=== PATIENT | female | born 1990 | race African-American/Black ===

== ENCOUNTER 2019-04-16 09:33 | Emergency (ER) | payer MEDICAID ==
[2019-04-16 10:10] VITALS: BP 124/66
--- NOTE | 2019-04-16 10:19 | ER Document Report ---
ED Medical Screen (RME) - General Chief Complaint: Abdominal Pain Stated Complaint: ABDOMINAL PAIN Time Seen by Provider: 04/16/19 10:16 - HPI Notes: 04/16/19 10:18 Patient is a 29-year-old female G4, P2 approximately 11 weeks who presents complaining of right lower pelvic cramping intermittently for a few weeks with occasional low back pain as well. She has not had any vaginal bleeding, odor, or discharge. I have treated and performed a rapid initial assessment of this patient. A comprehensive ED assessment and evaluation of the patient, analysis of test results and completion of medical decision making process will be conducted by additional ED providers. PHYSICAL EXAMINATION: GENERAL: Well-appearing, well-nourished and in no acute distress. A&Ox4. Answers questions appropriately. Abdomen: Limited exam in triage, but abdomen is otherwise grossly soft without significant tenderness noted. - Related Data Allergies/Adverse Reactions: acetaminophen [From Tylenol-Codeine #3] Allergy (Verified 04/16/19 10:17) codeine [From Tylenol-Codeine #3] Allergy (Verified 04/16/19 10:17) Physical Exam - Vital signs Vitals: Temp Pulse Resp BP Pulse Ox 98.3 F 73 16 124/66 99 04/16/19 10:09 04/16/19 10:09 04/16/19 10:09 04/16/19 10:09 04/16/19 10:09 Course - Vital Signs Vital signs: Temp Pulse Resp BP Pulse Ox 98.3 F 73 16 124/66 99 04/16/19 10:09 04/16/19 10:09 04/16/19 10:09 04/16/19 10:09 04/16/19 10:09
[2019-04-16 11:04] LABS: ABSOLUTE EOSINOPHILS # (AUTO) 0.1 10^3/uL (0.0-0.6); ABSOLUTE LYMPHOCYTES (AUTO) 1.9 10^3/uL (0.5-4.7); ABSOLUTE MONOCYTES (AUTO) 0.4 10^3/uL (0.1-1.4); ABSOLUTE NEUT (AUTO) 6.1 10^3/uL (1.7-8.2); BASOPHILS % (AUTO) 0.3 % (0-2); EOSINOPHILS % (AUTO) 0.9 % (0-6); HEMATOCRIT 37.3 % (36.0-47.0); HEMOGLOBIN 12.6 g/dL (12.0-15.5); MEAN CORPUSCULAR HEMOGLOBIN 29.1 pg (27.0-33.4); MEAN CORPUSCULAR HGB CONC 33.7 g/dL (32.0-36.0); MEAN CORPUSCULAR VOLUME 86 fl (80-97); MONOCYTES % (AUTO) 4.9 % (3-13); PLATELET COUNT 261 10^3/uL (150-450); RED BLOOD COUNT 4.31 10^6/uL (3.72-5.28); RED CELL DISTRIBUTION WIDTH 13.7 % (11.5-14.0); SEGMENTED NEUTROPHILS % (AUTO) 71.9 % (42-78); TOTAL CELLS COUNTED % (AUTO) 100 %; WHITE BLOOD COUNT 8.5 10^3/uL (4.0-10.5)
[2019-04-16 11:07] LABS: APPEARANCE,URINE CLEAR; BILIRUBIN,URINE NEGATIVE (NEGATIVE); COLOR,URINE YELLOW; GLUCOSE, URINE NEGATIVE (NEGATIVE); KETONES,URINE NEGATIVE (NEGATIVE); PROTEIN,URINE NEGATIVE (NEGATIVE); URINE SPECIFIC GRAVITY 1.023; UROBILINOGEN,URINE NEGATIVE mg/dL (<2.0)
--- NOTE | 2019-04-16 11:17 | RADIOLOGY REPORT (SQ) ---
EXAM DESCRIPTION: U/S 1TRIMESTER/1GEST W/DOPPLER COMPLETED DATE/TIME: 04/16/2019 11:08 am REASON FOR STUDY: pelvic cramps, approx 11wks preg. COMPARISON: None. TECHNIQUE: Transabdominal static and realtime grayscale images acquired of the pelvis. Additional se lected spectral and color Doppler images recorded. All images stored on PACs. bHCG: Pending. CLINICAL DATES: LMP 01/28/2019. 11 weeks 1 day. LIMITATIONS: None. FINDINGS: FETUS: Single Living intrauterine . ULTRASOUND EGA: 11 weeks 5 days. ULTRASOUND BRENDA: 10/31/2019 EFW: Not applicable less than 20 weeks. CRL: 5 cm. FHR: 158 beats per minute. SURVEY: Too early to assess. AMNIOTIC FLUID: Adequate amount. PLACENTA: Not yet developed due to early gestation. SUBCHORIONIC BLEED: No SIZE OF BLEED: Not applicable. UTERUS: No masses. No anomalies. CERVICAL LENGTH: 2 cm. Closed. RIGHT ADNEXA: Normal ovary with normal vascular flow. 2.7 x 2.4 x 2 cm. No adnexal free fluid. No adnexal masses. LEFT ADNEXA: Normal ovary with normal vascular flow. 3.4 x 2.4 x 1.7 cm. No adnexal free fluid. No adnexal masses. FREE FLUID: None. OTHER: No other significant finding. IMPRESSION: LIVING INTRAUTERINE . EGA 11 weeks 5 days. Trimester of : First trimester - 0 to 13 weeks. TECHNICAL DOCUMENTATION: JOB ID: [id number] [employer]- All Rights Reserved Reading location - IP/workstation name: [email or web address]
[2019-04-16 11:27] LABS: ALBUMIN 3.8 g/dL (3.5-5.0); ALKALINE PHOSPHATASE 60 U/L (38-126); ANION GAP 8 (5-19); ASPARTATE AMINO TRANSFERASE 25 U/L (14-36); BILIRUBIN,DIRECT 0.2 mg/dL (0.0-0.4); BILIRUBIN,TOTAL 0.3 mg/dL (0.2-1.3); BLOOD UREA NITROGEN 10 mg/dL (7-20); CALCIUM 9.6 mg/dL (8.4-10.2); CARBON DIOXIDE 25 mmol/L (22-30); CHLORIDE 105 mmol/L (98-107); GLUCOSE 74 mg/dL (75-110); POTASSIUM 4.3 mmol/L (3.6-5.0); TOTAL PROTEIN 6.8 g/dL (6.3-8.2)
--- NOTE | 2019-04-16 12:13 | ER Document Report ---
ED GI/ - General Chief Complaint: Abdominal Pain Stated Complaint: ABDOMINAL PAIN Time Seen by Provider: 04/16/19 10:16 TRAVEL OUTSIDE OF THE [place] IN LAST 30 DAYS: No - HPI Patient complains to provider of: Abdominal pain, . No: Diarrhea, Dysuria, Feeding tube problem, Flank pain, Chaney catheter problem, Hematuria, Missed/Late menses, Pelvic pain, Urinary retention, Vaginal bleeding, Vaginal d ischarge, Vaginal pain, Vomiting, Other Timing/Duration: Gradual Quality of pain: Achy Severity at maximum: Mild Severity in ED: Mild Context: denies: Bad food, Lifting, Out of the country travel, , Recent trauma, Other Location: No: Chest pain, Epigastric, LUQ, LLQ, RUQ, RLQ, Left flank, Right flank, Low back, Suprapubic, Pelvis, Vaginal, Vulvar, Rectal, Other Vaginal bleeding (Compared to normal period): denies: None, Spotting, Electricity Trader, Similar, Heavier, Severe, Bright red, Dark brown, Passing clots, Passing tissue Sexual history: Active Associated symptoms: denies: None, Blood in emesis, Blood in stool, Chest pain, Chills, Coffee ground emesis, Constipation, Diarrhea, Dizzy, Dysuria, Fever, Hard stool, Hematuria, Hurts to breath, Inguinal mass, Lightheaded, Loss of appetite, Nausea, Odor, Painful intercourse, Radiates to back, Radiates to chest, Radiates to vagina, Radiates to shoulder, Shortness of breath, Sweaty, Syncope, Urinary hesitancy, Urinary frequency, Urinary retention, Urinary urgency, Vaginal discharge, Vomiting, Other Exacerbated by: denies: Denies, Supine, Sitting, Standing, Movement, Walking, Coughing, Deep breathing, Food, Other Relieved by: denies: Denies, Supine, Sitting, Standing, Remaining still, Antacids, Food, Other Notes: 04/16/19 12:11 Is a 4 para 2 A1 at approximately 11 weeks by dates who claims that she has had some crampy lower abdominal pain she denies any vaginal bleeding or discharge. - Related Data Allergies/Adverse Reactions: acetaminophen [From Tylenol-Codeine #3] Allergy (Verified 04/16/19 10:17) codeine [From Tylenol-Codeine #3] Allergy (Verified 04/16/19 10:17) Home Medications: Prenatals Past Medical History - Social History Smoking Status: Never Smoker Chew tobacco use (# tins/day): No Frequency of alcohol use: None Drug Abuse: None Family History: None Patient has suicidal ideation: No Patient has homicidal ideation: No Review of Systems - Review of Systems Constitutional: denies: No symptoms reported, See HPI, Chills, Diaphoresis, Fever, Malaise, Weakness, Other, Weight gain, Weight loss, Recent illness Cardiovascular: denies: No symptoms reported, See HPI, Chest pain, Palpitations, Heart racing, Orthopnea, Dyspnea, Syncope, Dizziness, Lightheaded, Edema, Other, Paroxysmal Nocturnal Dysp Respiratory: denies: No symptoms reported, See HPI, Cough, Hurts to breathe, Hemoptysis, Short of breath, Sputum, Stridor, Wheezing, Other Gastrointestinal: denies: No symptoms reported, See HPI, Abdomen distended, Abdominal pain, Diarrhea, Nausea, Vomiting, Constipation, Blood streaked bowels, Poor appetite, Poor fluid intake, Blood in vomit, Black stools, Rectal bleeding, Last bowel movement, Fecal incontinence, Other Genitourinary: Frequency. denies: No symptoms reported, See HPI, Burning, Dysuria, Discharge, Flank pain, Hematuria, Incontinence, Pain, Urgency, Retention, Other Female Genitourinary: . denies: No symptoms reported, See HPI, Last menstrual period, Post menopausal, Heavy/abnormal periods, Irregular period, Vaginal bleeding, Vaginal discharge, Vaginal odor, Painful intercourse, Other -: Yes All other systems reviewed and negative Physical Exam - Vital signs Vitals: Temp Pulse Resp BP Pulse Ox 98.3 F 73 16 124/66 99 04/16/19 10:09 04/16/19 10:09 04/16/19 10:09 04/16/19 10:09 04/16/19 10:09 Notes: PHYSICAL EXAMINATION: GENERAL: Well-appearing, well-nourished and in no acute distress. HEAD: Atraumatic, normocephalic. EYES: Pupils equal round and reactive to light, extraocular movements intact, sclera anicteric, conjunctiva are normal. ENT: nares patent, oropharynx clear without exudates. Moist mucous membranes. NECK: Normal range of motion, supple without lymphadenopathy LUNGS: Breath sounds clear to auscultation bilaterally and equal. No wheezes rales or rhonchi. HEART: Regular rate and rhythm without murmurs ABDOMEN: Soft, mild suprpubic tenderness, normoactive bowel sounds. No guarding, no rebound. No masses appreciated. Back:: No CVA tenderness bilaterally EXTREMITIES: Normal range of motion, no pitting or edema. No cyanosis. NEUROLOGICAL: No focal neurological deficits. Moves all extremities spontan eously and on command. PSYCH: Normal mood, normal affect. SKIN: Warm, Dry, normal turgor, no rashes or lesions noted. Course - Vital Signs Vital signs: Temp Pulse Resp BP Pulse Ox 98.3 F 73 16 124/66 99 04/16/19 10:09 04/16/19 10:09 04/16/19 10:09 04/16/19 10:09 04/16/19 10:09 - Laboratory Result Diagrams: 04/16/19 10:38 04/16/19 10:38 Laboratory results interpreted by me: 04/16/19 04/16/19 10:38 10:41 Glucose 74 L Beta HCG, Quant 20403.00 H Urine Ascorbic Acid 20 H - Diagnostic Test Radiology reviewed: Reports reviewed - Transfer of Care Notes: 04/16/19 12:13 Discussed with patient findings of labs and ultrasound explained her to follow- up with her OB doctor return if increased abdominal pain vaginal bleeding or condition worsens Discharge - Discharge Clinical Impression: Pain of round ligament Intrauterine normal Qualifiers: Trimester: first trimester Qualified Code(s): Z34.91 - Encounter for supervision of normal , unspecified, first trimester Condition: Good Disposition: HOME, SELF-CARE Instructions: Abdominal Pain ([facility]) Additional Instructions: Return if increased pain vaginal bleeding or discharge fluid leakage or condition worsens. Follow-up with your noise abatement engineer doctor as discussed for care
== END 2019-04-16 12:23 | disposition home or self-care (01) ==
LOC: ER 09:33
DX: O26.891 Other specified pregnancy related conditions, first trimester (principal); R10.2 Pelvic and perineal pain; R10.30 Lower abdominal pain, unspecified; Z3A.11 11 weeks gestation of pregnancy
CPT/HCPCS: 36415; 76801; 80053; 81001; 84702; 85025; 93976; 99284

== ENCOUNTER 2019-09-24 16:32 | Outpatient (CLI) | payer MEDICAID | END 2019-09-24 17:31 | disposition home or self-care (01) | LOC: LC 16:32 | PROVIDERS: ATTEND Obstetrics & Gynecology | DX: O24.419 Gestational diabetes mellitus in pregnancy, unspecified control (principal); Z3A.34 34 weeks gestation of pregnancy | CPT/HCPCS: 59025 ==

== ENCOUNTER 2019-10-01 14:03 | Outpatient (CLI) | payer MEDICAID ==
--- NOTE | 2019-10-01 14:12 | Non Stress Test Report ---
Non Stress Test Datetime Report Generated by CPN: 10/01/2019 14:12 DEMOGRAPHIC EGA NST: 34.1 VITAL SIGNS Temperature - NST: 99.1 Pulse - NST: 86 RESP - NST: 18 NBPSYS NST: 118 NBPDIA NST: 56 MONITORING Monitor Explained: Monitor Explained; Test Explained; Patient Verbalized Understanding Time on Monitor: 09/24/2019 16:45 Time off Monitor: 09/24/2019 17:25 NST Duration: 40 NST INTERVENTIONS NST Interventions: PO Hydration; Reposition Patient Physician Notified NST: Dr. Barba BABY A: [id number] BABY A Movement : Present Contraction Frequency : none FHR Baseline : 130 Accelerations : 15X15 Decelerations : None Variability : Moderate 6-25bpm NST Review: Meets Criteria for Reactive NST NST Review and Verified By : MMobley, RN NST Results: Reactive NST REPORT Report Trigger: Send Report
== END 2019-10-01 14:38 | disposition home or self-care (01) ==
LOC: LC 14:03
PROVIDERS: ATTEND Student in an Organized Health Care Education/Training Program
DX: Z34.93 Encounter for supervision of normal pregnancy, unspecified, third trimester (principal)
CPT/HCPCS: 59025

== ENCOUNTER 2019-10-04 15:29 | Outpatient (CLI) | payer MEDICAID ==
--- NOTE | 2019-10-04 15:39 | Non Stress Test Report ---
Non Stress Test Datetime Report Generated by CPN: 10/04/2019 15:39 DEMOGRAPHIC EGA NST: 35.1 INDICATION Indication for Study (NST) Other: Dr orders VITAL SIGNS Temperature - NST: 98.4 Pulse - NST: 83 RESP - NST: 18 NBPSYS NST: 124 NBPDIA NST: 56 MONITORING Monitor Explained: Monitor Explained; Test Explained; Patient Verbalized Understanding Time on Monitor: 10/01/2019 14:15 Time off Monitor: 10/01/2019 14:36 NST Duration: 21 NST INTERVENTIONS NST Interventions: PO Hydration Physician Notified NST: pjones, cnm BABY A: [id number] BABY A Movement : Present Contraction Frequency : 0 FHR Baseline : 135 Accelerations : 15X15 Decelerations : None Variability : Moderate 6-25bpm NST Review: Meets Criteria for Reactive NST NST Review and Verified By : SAutry NST Results: Reactive NST REPORT Report Trigger: Send Report
[2019-10-04 16:32] LABS: APPEARANCE,URINE SLIGHTLY-CLOUDY; BILIRUBIN,URINE NEGATIVE (NEGATIVE); COLOR,URINE YELLOW; GLUCOSE, URINE NEGATIVE (NEGATIVE); KETONES,URINE NEGATIVE (NEGATIVE); LEUKOCYTE ESTERASE,URINE NEGATIVE (NEGATIVE); NITRITE,URINE NEGATIVE (NEGATIVE); PROTEIN,URINE 30 mg/dL (NEGATIVE); URINE SPECIFIC GRAVITY 1.028; UROBILINOGEN,URINE NEGATIVE mg/dL (<2.0)
[2019-10-04 16:46] LABS: URINE AMPHETAMINES SCREEN NEGATIVE; URINE BARBITURATES SCREEN NEGATIVE; URINE BENZODIAZEPINES SCREEN NEGATIVE; URINE COCAINE SCREEN NEGATIVE; URINE MARIJUANA (THC) SCREEN NEGATIVE; URINE METHADONE SCREEN NEGATIVE; URINE PHENCYCLIDINE SCREEN NEGATIVE
--- NOTE | 2019-10-04 17:05 | Non Stress Test Report ---
Non Stress Test Datetime Report Generated by CPN: 10/04/2019 17:04 DEMOGRAPHIC Test Number: 3 EGA NST: 35.4 INDICATION Indication for Study (NST) Other: Provider order IUP @ 35.4 VITAL SIGNS Temperature - NST: 98.3 Pulse - NST: 93 RESP - NST: 18 NBPSYS NST: 125 NBPDIA NST: 68 MONITORING Monitor Explained: Monitor Explained; Test Explained; Patient Verbalized Understanding Time on Monitor: 10/04/2019 15:45 Time off Monitor: 10/04/2019 16:59 NST Duration: 74 NST INTERVENTIONS NST Interventions: PO Hydration; Reposition Patient Physician Notified NST: A. Vasquez, CNM BABY A Movement : Present Contraction Frequency : 0 FHR Baseline : 135 Accelerations : 15X15 Decelerations : None Variability : Moderate 6-25bpm NST Review: Meets Criteria for Reactive NST NST Review and Verified By : Guillermina Zamora RN NST Results: Reactive NST REPORT Report Trigger: Send Report
== END 2019-10-04 17:09 | disposition home or self-care (01) ==
LOC: LC 15:29
PROVIDERS: ATTEND Student in an Organized Health Care Education/Training Program
DX: O26.893 Other specified pregnancy related conditions, third trimester (principal); R10.30 Lower abdominal pain, unspecified; Z3A.35 35 weeks gestation of pregnancy; Z88.6 Allergy status to analgesic agent
CPT/HCPCS: 80307; 81001

== ENCOUNTER 2019-10-08 16:02 | Outpatient (CLI) | payer MEDICAID ==
--- NOTE | 2019-10-08 17:21 | Non Stress Test Report ---
Non Stress Test Datetime Report Generated by CPN: 10/08/2019 17:21 DEMOGRAPHIC EGA NST: 36.1 VITAL SIGNS Pulse - NST: 93 NBPSYS NST: 125 NBPDIA NST: 68 MONITORING Monitor Explained: Monitor Explained; Test Explained; Patient Verbalized Understanding Time on Monitor: 10/08/2019 16:10 Time off Monitor: 10/08/2019 17:18 NST Duration: 68 NST INTERVENTIONS NST Interventions: PO Hydration Physician Notified NST: C Silveira MD BABY A: [id number] BABY A Movement : Present Contraction Frequency : irregular FHR Baseline : 135 Accelerations : 15X15 Decelerations : None Variability : Moderate 6-25bpm NST Review: Meets Criteria for Reactive NST NST Review and Verified By : Maureen, RN NST Results: Reactive NST REPORT Report Trigger: Send Report
== END 2019-10-08 17:30 | disposition home or self-care (01) ==
LOC: LC 16:02
PROVIDERS: ATTEND Specialist
DX: Z34.93 Encounter for supervision of normal pregnancy, unspecified, third trimester (principal)
CPT/HCPCS: 59025

== ENCOUNTER 2019-10-20 09:32 | Inpatient (IN) | payer MEDICAID ==
[2019-10-20] MEDS ORDERED: RINGERS SOLUTION,LACTATED 1,000 ML IV ONE (09:50)
[2019-10-20] MEDS ORDERED: RINGERS SOLUTION,LACTATED 1,000 ML IV PRN ×2 (09:50→12:27)
[2019-10-20] MEDS ORDERED: CEFAZOLIN SODIUM 2 GM in DEXTROSE 5%-WATER 50 ML IV PRN (09:52)
[2019-10-20] MEDS ORDERED: CITRIC ACID/SODIUM CITRATE ORAL SOLN 15 ML UDCUP ONE (09:53)
[2019-10-20] MEDS ORDERED: CEFAZOLIN 2 GM/D5W RTU 2 GM/50 ML RTUPB IV ONE (09:54)
[2019-10-20 10:05] LABS: APPEARANCE,URINE SLIGHTLY-CLOUDY; BILIRUBIN,URINE NEGATIVE (NEGATIVE); COLOR,URINE YELLOW; GLUCOSE, URINE NEGATIVE (NEGATIVE); KETONES,URINE TRACE mg/dL (NEGATIVE); LEUKOCYTE ESTERASE,URINE TRACE (NEGATIVE); NITRITE,URINE NEGATIVE (NEGATIVE); PROTEIN,URINE 30 mg/dL (NEGATIVE); URINE SPECIFIC GRAVITY 1.021; UROBILINOGEN,URINE NEGATIVE mg/dL (<2.0)
[2019-10-20 10:22] LABS: URINE AMPHETAMINES SCREEN NEGATIVE; URINE BARBITURATES SCREEN NEGATIVE; URINE BENZODIAZEPINES SCREEN NEGATIVE; URINE COCAINE SCREEN NEGATIVE; URINE MARIJUANA (THC) SCREEN NEGATIVE; URINE METHADONE SCREEN NEGATIVE; URINE PHENCYCLIDINE SCREEN NEGATIVE
--- NOTE | 2019-10-20 10:24 | Admission Physical ---
Datetime Report Generated by CPN: 10/20/2019 10:23 CURRENT ADMISSION Chief Complaint: Suspected Ruptured Membranes Indication for Induction: Not Applicable Admit Impression : Term, Intrauterine ; No Active Labor; Ruptured Membranes; Repeat Section Admit Plan: Admit to Unit; Initiate Section Protocol ALLERGIES Medication Allergies: Yes Medication Allergies: codeine (10/20/2019); acetaminophen (10/20/2019) Latex: No Latex Allergies Food Allergies: none Environmental Allergies: none OBSTETRICAL HISTORY EDC: 11/04/2019 00:00 : 4 Para: 2 Term: 2 : 0 SAB: 1 IAB: 0 Ectopic: 0 Livin Cesareans: 2 VBACs: 0 Multiple Births: 0 Gestational Diabetes: Yes Rh Sensitization: No Incompetent Cervix: No MARK: No Infertility: No ART Treatment: No Uterine Anomaly: No IUGR: No Hx Previous C/S: Yes Macrosomia: No Hx Loss/Stillborn: No PIH: No Hx : No Placenta Previa/Abruption: No Depression/PP Depression: No PTL/PROM: No Post Hemorrhage: No Current Procedures: Ultrasound Obstetrical History Comments: G1- G2- G3- G4- current; GDM diet controlled SEE RECORDS Alcohol: No Marijuana : No Cocaine: No Other Illicit Drugs: No Cigarettes: Never Smoker. [id number] MEDICAL HISTORY Diabetes: Yes Diabetes Type: Gestational Diabetes Blood Transfusion: No Pulmonary Disease (Asthma, TB): No Breast Disease: No Hypertension: No Finance Effectiveness Manager Surgery: No Heart Disease: No Hosp/Surgery: Yes Autoimmune Disorder: No Anesthetic Complications: No Kidney Disease: No Abnormal Pap Smear: Yes Neuro/Epilepsy: No Psychiatric Disorders: No Other Medical Diseases: No Hepatitis/Liver Disease: No Significant Family History: No Varicosities/Phlebitis: No Trauma/Violence : No Thyroid Dysfunction: No Medical History Comments: c/s x2, abnormal pap 2015 INFECTIOUS HISTORY Gonorrhea: No Genital Herpes: No Chlamydia: No Tuberculosis: No Syphilis: No Hepatitis: No HIV/AIDS Exposure: No Rash or Viral Illness: No HPV: No PHYSICAL EXAM General: Normal HEENT: Normal Neurologic: Normal Thyroid: Deferred Heart: Normal Lungs: Normal Breast: Deferred Back: Normal Abdomen: Normal Genitourinary Exam: Normal Extremities: Normal DTRs: Normal Pelvic Type: Adequate Vital Signs: Reviewed VAGINAL EXAM Dilatation: 1 Effacement: 50 Station: -3 Contraction Comments: irreg FETUS A EGA: 37.6 Monitoring: External US FHR- Baseline: 125 Variability: Moderate 6-25bpm Accelerations: Absent Decelerations: None FHR Category: Category III Presentation: Vertex Admit Comment: 29yo at 37+6ega presents with PROM at 0915 clear fluid. Actimprom positive. BRENDA 11/03. She has undesired fertility. Title XX signed 08/14/2019. GBS negative. A1GDM and obesity. She had a positive AFP this - repeat AFP and [id number] nl. h/o PTD delivery times 2. H/o G1 with DOwn Syndrome. Admit and will proceed with repeat c/s and BTL. Labs orderd. BPs slightly elevated will chk PIH labs. PLANS FOR LABOR AND DELIVERY Labor and Delivery: None Pain Management: Spinal Feeding Preference: Both Benefit of Breast Feed Discussed: Yes Circumcision: N/A INFORMED CONSENT Informed Consent Obtained: Section Delivery; Risks, Benefits and Alternatives Discussed Signature: with User ID: [email or web address]
[2019-10-20 10:37] LABS: ABSOLUTE EOSINOPHILS # (AUTO) 0.1 10^3/uL (0.0-0.6); ABSOLUTE LYMPHOCYTES (AUTO) 2.2 10^3/uL (0.5-4.7); ABSOLUTE MONOCYTES (AUTO) 0.7 10^3/uL (0.1-1.4); BASOPHILS % (AUTO) 0.2 % (0-2); EOSINOPHILS % (AUTO) 0.7 % (0-6); HEMATOCRIT 37.7 % (36.0-47.0); HEMOGLOBIN 12.5 g/dL (12.0-15.5); LYMPHOCYTES % (AUTO) 18.5 % (13-45); MEAN CORPUSCULAR HEMOGLOBIN 28.9 pg (27.0-33.4); MEAN CORPUSCULAR HGB CONC 33.3 g/dL (32.0-36.0); MEAN CORPUSCULAR VOLUME 87 fl (80-97); MONOCYTES % (AUTO) 5.7 % (3-13); PLATELET COUNT 204 10^3/uL (150-450); RED BLOOD COUNT 4.33 10^6/uL (3.72-5.28); RED CELL DISTRIBUTION WIDTH 14.7 % (11.5-14.0); SEGMENTED NEUTROPHILS % (AUTO) 74.9 % (42-78); TOTAL CELLS COUNTED % (AUTO) 100 %
[2019-10-20 10:40] LABS: UR PRO/CREAT RATIO RESULT 0.2 mg/mg (0.0-0.2); URINE CREATININE 107.7 mg/dL (16-327); URINE PROTEIN 17.9 mg/dL (<12)
--- NOTE | 2019-10-20 10:43 | Brief Operative Note ---
BRIEF OPERATIVE REPORT DATE OF SURGERY: 10/20/19 TIME OF SURGERY: 11:00 PREOPERATIVE DIAGNOSIS: 37+6ega, , A1GDM, h/o section x 2, undesired fertility, spontaneous rupture of membranes before the onset of labor, hypertrophic scar. POSTOPERATIVE DIAGNOSIS: BRITT - delivered SURGEON: VAN CASTRO FINDINGS: VFI delivered at 1129, weight 6#15oz, Apgars 8/9, dense scarring of rectus musles. Bilateral tubal ligation/occlusion performed with Filschie clips. Normal tubes/ovaries bilaterally. IVF 1500ml, UOP 150ml COMPLICATIONS: none ESTIMATED BLOOD LOSS: 600ml TISSUE REMOVED OR ALTERED: placenta and cord TECHNICAL PROCEDURE: Repeat section, Bilateral TUbal Occlusion with Filschie clips, Scar revision
[2019-10-20 10:53] LABS: ALBUMIN 3.1 g/dL (3.5-5.0); ALKALINE PHOSPHATASE 121 U/L (38-126); ANION GAP 6 (5-19); BILIRUBIN,TOTAL 0.2 mg/dL (0.2-1.3); BLOOD UREA NITROGEN 12 mg/dL (7-20); CALCIUM 9.5 mg/dL (8.4-10.2); CARBON DIOXIDE 19 mmol/L (22-30); CHLORIDE 108 mmol/L (98-107); GLUCOSE 92 mg/dL (75-110); POTASSIUM 4.1 mmol/L (3.6-5.0); TOTAL PROTEIN 5.7 g/dL (6.3-8.2); URIC ACID 4.2 mg/dL (2.5-6.2)
[2019-10-20 10:55] LABS: ASPARTATE AMINO TRANSFERASE 21 U/L (14-36)
[2019-10-20] MEDS ORDERED: PHENYLEPHRINE HCL INJ/PF 10 MG/1 ML SDV ONE (10:57)
[2019-10-20] MEDS ORDERED: OXYTOCIN 10 UNIT/ML VIAL ONE (10:57)
[2019-10-20] MEDS ORDERED: ONDANSETRON HCL INJ/PF 4 MG/2 ML SDV ONE (10:57)
[2019-10-20] MEDS ORDERED: MIDAZOLAM 2 MG/2 ML INJ ONE (10:57)
[2019-10-20] MEDS ORDERED: OXYTOCIN/0.9 % SODIUM CHLORIDE 30 UNIT/500 ML RTUINJ ONE (11:01)
[2019-10-20] MEDS ORDERED: ROPIVACAINE HCL 0.2% INJ/PF (2 MG/ML) 20 ML SDV ONE (11:02)
[2019-10-20] MEDS ORDERED: FENTANYL CITRATE INJ/PF 100 MCG/2 ML AMPUL IV PRN ×3 (12:01)
[2019-10-20] MEDS ORDERED: DIPHENHYDRAMINE HCL 50 MG/ML VIAL IV PRN (12:01)
[2019-10-20] MEDS ORDERED: MORPHINE SULFATE 10 MG/ML INJ IV PRN (12:01)
--- NOTE | 2019-10-20 12:22 | Operative Report ---
Operative Report DATE OF SURGERY: 10/20/19 PREOPERATIVE DIAGNOSIS: 37+6ega, , A1GDM, h/o section x 2, unde sired fertility, spontaneous rupture of membranes before the onset of labor, hypertrophic POSTOPERATIVE DIAGNOSIS: BRITT - delivered OPERATION: Repeat section, Scar Revision, Bilateral tubal Occlusion with filschie clips SURGEON: VAN CASTRO ANESTHESIA: Spinal TISSUE REMOVED OR ALTERED: placenta and cord not sent to pathology COMPLICATIONS: None ESTIMATED BLOOD LOSS: 600 QUANTITATIVE BLOOD LOSS: 765 INTRAOPERATIVE FINDINGS: VFI delivered at 1129, weight 6#15oz, Apgars 8/9, dense scarring of rectus musles. Bilateral tubal ligation/occlusion performed with Fi lschie clips. Normal tubes/ovaries bilaterally. IVF 1500ml, UOP 150ml PROCEDURE: Anesthesia provider: [Talya Herrera CRNA, [facility]] Urine output: [150ml] IV fluids: [1500ml] Indications: [29yo at 37+6ega with spontaneous rupture of membranes at 0900 this am. She has a history of 2 prior sections and desires repeat. She is 100% sure that she has completed childbearing. She signed title XX on 08/13 per chart. The risks, benefits, alternatives were reviewed and she desires to proceed with planned procedure of Repeat section with B ilateral tubal ligation/occlusion.] Procedure: The patient was taken to the operating room where spinal anesthesia was obtained and found to be adequate. She was then prepped and draped in the normal sterile fashion and placed in the dorsal supine position with a leftward tilt. The prior Pfannenstiel skin incision was then made and carried through to the underlying layers of the fascia with the scalpel. The fascia was incised in the midline and the incision extended laterally with the Rowell scissors. The superior aspect of the fascial incision was then grasped with Tony clamps elevated and the underlying rectus muscles dissected off sharply. Attention was then turned to the inferior aspect of the fascial incision which in a similar fashion was grasped, tented up with Tony clamps, and the rectus muscles dissected off sharply. The rectus muscles were then in the midline and the peritoneum at the amount identified and entered sharply. The peritoneal incision was then extended superiorly and inferiorly with good visualization of the bladder. The bladder blade was inserted and the vesicouterine peritoneum identified grasped with Syrian pickups and entered sharply with the Metzenbaum scissors. This incision was then extended laterally with the Metzenbaum scissors and a bladder flap created digitally. The bladder blade was then reinserted and the lower uterine segment incised in a transverse fashion with the scalpel. The uterine incision was then extended bluntly. The bladder blade was removed and the 's head was delivered from cephalic presentation atraumatically. The nose and mouth were suctioned and the cord doubly clamped and cut. And the infant was handed off to waiting pediatricians. The placenta was then delivered spontaneously and the uterus exteriorized and cleared of all clots and debris. The uterine incision was then repaired with 1- 0 Vicryl in a running locked fashion. A second layer of the same suture was used to obtain hemostasis via imbrication of the initial layer. The bladder flap was then repaired with 3-0 chromic in a running fashion. The Left fallopian tube was identified and followed out to the fimbriated end and filschie clip was placed in the mid ampullary portion. This procedure was repeated on the patients right completing bilateral tubal ligation. The uterus was returned to the patient's abdomen and Surgicel was placed overlying the uterine incision to help with hemostasis. The gutters were cleared of all clots and debris. All operative sites were noted to be hemostatic. The fascia was reapproximated with 0 Vicryl in a running fashion from each lateral edge to the midline. The skin was closed with 3-0 Monocryl in a running subcuticular fashion with overlying Exofin for additional dressing as well as wound closure. The patient tolerated the procedure well. Sponge lap needle and instrument counts are correct times 2. 2 g of Ancef were given prior to skin incision. The patient was taken to the recovery area awake and in stable condition.
[2019-10-20] MEDS ORDERED: SIMETHICONE 80 MG TAB.CHEW PO PRN (12:27)
[2019-10-20] MEDS ORDERED: ACETAMINOPHEN 1,000 MG/100 ML RTUPB IV PRN (12:27)
[2019-10-20] MEDS ORDERED: ACETAMINOPHEN 325 MG TABLET PO PRN (12:27)
[2019-10-20] MEDS ORDERED: MEASLES,MUMPS&RUBELLA VACC/PF 0.5 ML VIAL SUBCUT PRN (12:27)
[2019-10-20] MEDS ORDERED: OXYTOCIN/0.9 % SODIUM CHLORIDE 30 UNIT/500 ML RTUINJ IV PRN (12:27)
[2019-10-20] MEDS ORDERED: HYDROMORPHONE HCL INJ/PF 2 MG/ML AMPULE IV PRN (12:27)
[2019-10-20] MEDS ORDERED: DIPH/PERTUSS(ACELL)/TETANUS VAC/PF 0.5 ML SYR (>=10YO) IM PRN (12:27)
[2019-10-20] MEDS ORDERED: PROMETHAZINE HCL INJ 25 MG/1 ML VIAL IV PRN (12:27)
[2019-10-20] MEDS ORDERED: MORPHINE SULFATE 10 MG/ML INJ ONE (13:35)
[2019-10-20] MEDS ORDERED: ACETAMINOPHEN 1,000 MG/100 ML RTUPB IV ONE (14:10)
--- NOTE | 2019-10-20 14:23 | Delivery Summary ---
Del Sum A-C Datetime Report Generated by CPN: 10/20/2019 14:23 DELIVERY PERSONNEL DELIVERY PERSONNEL: [id number] Delivery Doctor:: Lorie Dupree MD CLAY MACHINE OPERATOR:: Dorian Herrera CRNA Fuse Assembler:: Anabel Lombardo RN Neonatal Nurse Practitioner:: DEDRA Uribe Nursery Nurse:: Sade Rain RN Beet Worker/INTERNATIONAL RELATIONS PROFESSOR: Brittaney Melendrez, ST MATERNAL INFORMATION Delivery Anesthesia: Spinal Medications After Delivery: Pitocin 30 Units in 500ml NS/D5W Delivery QBL: 510 Maternal Complications: None LABOR SUMMARY EDC: 11/04/2019 00:00 No. Babies in Womb: 1 Attempted: No Labor Anesthesia: None LABOR INFORMATION Reason for Induction: Not Applicable Oxytocin: N/A Group B Beta Strep: negative Antibiotics # of Doses: 1 Antibiotics Time of Last Dose: 1105 Name of Antibiotic Given: Ancef 2 gm Steroids Given: None Reason Steroids Not Administered: Not Applicable MEMBRANES Membranes Rupture Method: Spontaneous Rupture of Membranes: 10/20/2019 09:15 Length of Rupture (hr): 2.23 Amniotic Fluid Color: Clear Amniotic Fluid Amount: Small Amniotic Fluid Odor: Normal STAGES OF LABOR Stage 3 hr: 0 Stage 3 min: 2 VAGINAL DELIVERY Episiotomy: None Laceration #1: None Laceration Extension #1: N/A Laceration Repair: Not Applicable Sponge Count Correct: N/A Sharps Count Correct: N/A CSECTION DELIVERY Primary Indication: 2 Previous C-Sections Other Primary Indication: BTL CSection Urgency: Non-Scheduled CSection Incidence: Repeat Labor: N/A Elective: Nonelective CSection Incision: Lower Uterine Transverse Other Sterilization Procedure: filshie clips BABY A INFORMATION Delivery Date/Time: 10/20/2019 11:29 Method of Delivery: Nurse Controlled Delivery: No Born in Route : No : N/A Forceps: N/A Vacuum Extraction: N/A Shoulder Dystocia : No PRESENTATION/POSITION BABY A Presentation: Cephalic Cephalic Presentation: Vertex Breech Presentation: N/A PLACENTA INFORMATION BABY A Placenta Delivery Time : 10/20/2019 11:31 Placenta Method of Delivery: Manual Removal Placenta Status: Delivered SCORES BABY A Heart Rate 1 min: >100 bpm Resp Effort 1 min: Good Cry Reflex Irritability 1 min: Cough or Sneeze or Pulls Away Muscle Tone 1 min: Active Motion Color 1 min: Blue/Pale Resuscitation Effort 1 min: Tactile Stimulation SCORE 1 MIN: 8 Heart Rate 5 min: >100 bpm Resp Effort 5 min: Good Cry Reflex Irritability 5 min: Cough or Sneeze or Pulls Away Muscle Tone 5 min: Active Motion Color 5 min: Body [place], Extremities Blue Resuscitation Effort 5 min: N/A SCORE 5 MIN: 9 INFANT INFORMATION BABY A Gestational Age at Delivery: 37.6 Gestational Status: Early Term- 37- 38.6 Weeks Outcome : Liveborn Infant Condition : Stable Sex: Female IDENTIFICATION BABY A Verification Date/Time: 10/20/2019 11:30 ID Band Number: [id number] Mother's Name Verified: Yes Infant RN Verifying : CDakota Lombardo RN Additional Verifying Personnel: H. Zentila, TELEPHONE SEX WORKER WEIGHT/LENGTH BABY A Birthweight (gm): 3160 Weight (lb): 6 Weight (oz): 15 Infant Length (in): 19.50 Length (cm): 49.53 CORD INFORMATION BABY A No. Cord Vessels: 3 Nuchal Cord : N/A Cord Blood Taken: Yes-For Eval (Mom's Blood Type - or O+) Suction: None ASSESSMENT BABY A Infant Complications: None Physical Findings at Delivery: Within Normal Limits Respirations: Appears Normal Skin to Skin: No Skin to Skin Time (min): 0 Care By: Toi Granados RN Transferred To: Nursery BABY B INFORMATION : N/A
[2019-10-20] MEDS ORDERED: HYDROMORPHONE HCL INJ/PF 2 MG/ML AMPULE IV ONE ×2 (15:45→21:45)
[2019-10-20] MEDS: DOCUSATE SODIUM 100 MG CAPSULE PO SCH (17:04)
[2019-10-20] MEDS: IBUPROFEN 800 MG TABLET PO SCH (17:05)
[2019-10-21] MEDS: IBUPROFEN 800 MG TABLET PO SCH ×4 (00:40→17:52)
[2019-10-21 07:13] LABS: HEMATOCRIT 35.3 % (36.0-47.0); HEMOGLOBIN 11.7 g/dL (12.0-15.5); MEAN CORPUSCULAR HEMOGLOBIN 28.7 pg (27.0-33.4); MEAN CORPUSCULAR HGB CONC 33.1 g/dL (32.0-36.0); MEAN CORPUSCULAR VOLUME 87 fl (80-97); PLATELET COUNT 177 10^3/uL (150-450); RED BLOOD COUNT 4.07 10^6/uL (3.72-5.28); WHITE BLOOD COUNT 13.2 10^3/uL (4.0-10.5)
--- NOTE | 2019-10-21 09:29 | PDOC PROGRESS REPORT ---
Subjective-OB Progress Note for:: 10/21/19 Subjective: Pt doing well, no concerns. She reports light bleeding, voiding without difficulty, pain is controlled. Ambulatory, +flatus and on regular diet. Physical Exam (OB) Vital Signs: Temp Pulse Resp BP Pulse Ox 97.9 F 99 18 146/80 H 98 10/21/19 07:38 10/21/19 07:38 10/21/19 07:38 10/21/19 07:38 10/21/19 07:38 Intake & Output 10/20/19 10/21/19 10/22/19 06:59 06:59 06:59 Intake Total 240 Output Total 1700 Balance -1460 Weight 123.3 kg - Dressing Removed: No Incision: Dressing - Bilateral Tubal Ligation Dressing Removed: No - Lochia Lochia Amount: Small 10-25 ml Lochia Color: Rubra/Red - Abdomen Description: Soft, Round Hernia Present: No Fundal Description: Firm, Midline Fundal Height: u/u - u/2 Objective-Diagnostic Laboratory: 10/21/19 06:50 10/20/19 10:18 10/20/19 10/20/19 10/20/19 09:48 10:18 10:18 WBC 12.0 H RBC 4.33 Hgb 12.5 Hct 37.7 MCV 87 MCH 28.9 MCHC 33.3 RDW 14.7 H Plt Count 204 Seg Neutrophils % 74.9 Sodium Potassium Chloride Carbon Dioxide Anion Gap BUN Creatinine Est GFR ( Amer) Glucose Uric Acid Calcium Total Bilirubin AST Alkaline Phosphatase Total Protein Albumin Urine Color YELLOW Urine Appearance SLIGHTLY-CLOUDY Urine pH 5.0 Ur Specific [place] 1.021 Urine Protein 30 H Urine Glucose (UA) NEGATIVE Urine Ketones TRACE H Urine Blood NEGATIVE Urine Nitrite NEGATIVE Ur Leukocyte Esterase TRACE H Blood Type O POSITIVE Antibody Screen NEGATIVE 10/20/19 10/21/19 10:18 06:50 WBC 13.2 H RBC 4.07 Hgb 11.7 L Hct 35.3 L MCV 87 MCH 28.7 MCHC 33.1 RDW 15.0 H Plt Count 177 Seg Neutrophils % Sodium 132.7 L Potassium 4.1 Chloride 108 H Carbon Dioxide 19 L Anion Gap 6 BUN 12 Creatinine 0.63 Est GFR ( Amer) > 60 Glucose 92 Uric Acid 4.2 Calcium 9.5 Total Bilirubin 0.2 AST 21 Alkaline Phosphatase 121 Total Protein 5.7 L Albumin 3.1 L Urine Color Urine Appearance Urine pH Ur Specific [place] Urine Protein Urine Glucose (UA) Urine Ketones Urine Blood Urine Nitrite Ur Leukocyte Esterase Blood Type Antibody Screen Assessment and Plan(PN) - Assessment and Plan (1) Gestational diabetes mellitus (GDM) in childbirth, diet controlled Is this a current diagnosis for this admission?: Yes (2) History of 2 sections Is this a current diagnosis for this admission?: Yes (3) Obesity affecting Qualifiers: Trimester: unspecified trimester Qualified Code(s): O99.210 - Obesity complicating , unspecified trimester Is this a current diagnosis for this admission?: Yes (4) Premature rupture of membranes Qualifiers: PROM gestational age: full term Is this a current diagnosis for this admission?: Yes (5) S/P repeat low transverse Is this a current diagnosis for this admission?: Yes (6) Sterilization Is this a current diagnosis for this admission?: Yes - Time Spent with Patient Time with patient: Less than 15 minutes Medications reviewed and adjusted accordingly: Yes - Disposition Anticipated Discharge: Home Within: within 24 hours
[2019-10-21] MEDS: PRENATAL VITAMIN W DHA CAPSULE PO SCH (09:30)
[2019-10-21] MEDS: HYDROMORPHONE HCL 2 MG TABLET PO PRN ×2 (09:30→22:46)
[2019-10-21] MEDS: DOCUSATE SODIUM 100 MG CAPSULE PO SCH ×2 (09:30→17:52)
[2019-10-21] MEDS ORDERED: DIPH/PERTUSS(ACELL)/TETANUS VAC/PF 0.5 ML SYR (>=10YO) IM PRN (12:30)
[2019-10-21] MEDS ORDERED: PROMETHAZINE HCL INJ 25 MG/1 ML VIAL IV PRN (12:30)
[2019-10-21] MEDS ORDERED: MEASLES,MUMPS&RUBELLA VACC/PF 0.5 ML VIAL SUBCUT PRN (12:30)
[2019-10-22] MEDS: IBUPROFEN 800 MG TABLET PO SCH ×3 (00:38→12:58)
--- NOTE | 2019-10-22 09:12 | PDOC DISCHARGE SUMMARY ---
Impression - Admit/DC Date/PCP Admission Date/Primary Care Provider: 10/20/19 09:51 JERMAINE HUTCHISON MD Discharge Date: 10/22/19 - POD #2, doing well, desires to go home today. O+, rubella immune, breast and bottlefeeding - Discharge Diagnosis (1) Gestational diabetes mellitus (GDM) in childbirth, diet controlled Is this a current diagnosis for this admission?: Yes (2) History of 2 sections Is this a current diagnosis for this admission?: Yes (3) Obesity affecting Is this a current diagnosis for this admission?: Yes (4) Premature rupture of membranes Is this a current diagnosis for this admission?: Yes (5) S/P repeat low transverse Is this a current diagnosis for this admission?: Yes (6) Sterilization Is this a current diagnosis for this admission?: Yes - Additional Information Resuscitation Status: Full Code Discharge Diet: As Tolerated, Regular Discharge Activity: Activity As Tolerated, No Driving, No Lifting Over 10 Pounds, Pelvic Rest Referrals: JERMAINE HUTCHISON MD [Primary Care Provider] - Prescriptions: Hydromorphone HCl [Dilaudid 2 mg Tablet] 2 mg PO Q4HP PRN #30 tablet PRN Reason: Pain Scale Of 4 Ibuprofen [Motrin 800 mg Tablet] 800 mg PO Q6 #60 tablet Home Medications: Pnv No.95/Ferrous Fum/Folic AC [ Caplet] 1 each PO DAILY 09/24/19 Hydromorphone HCl [Dilaudid 2 mg Tablet] 2 mg PO Q4HP PRN #30 tablet 10/22/19 Ibuprofen [Motrin 800 mg Tablet] 800 mg PO Q6 #60 tablet 10/22/19 HPI Reason(s) for Admission: Ceasarean Section-Repeat, Tubal Ligation, Gestional Diabetes Procedures: Ultrasound Intrapartum Procedure(s): : Low Cervical, Transverse, Tubal Ligation Hospital Course Hospital Course: normal Results Laboratory Results: WBC 13.2 10^3/uL (4.0-10.5) H 10/21/19 06:50 RBC 4.07 10^6/uL (3.72-5.28) 10/21/19 06:50 Hgb 11.7 g/dL (12.0-15.5) L 10/21/19 06:50 Hct 35.3 % (36.0-47.0) L 10/21/19 06:50 MCV 87 fl (80-97) 10/21/19 06:50 MCH 28.7 pg (27.0-33.4) 10/21/19 06:50 MCHC 33.1 g/dL (32.0-36.0) 10/21/19 06:50 RDW 15.0 % (11.5-14.0) H 10/21/19 06:50 Plt Count 177 10^3/uL (150-450) 10/21/19 06:50 Lymph % (Auto) 18.5 % (13-45) 10/20/19 10:18 [place] % (Auto) 5.7 % (3-13) 10/20/19 10:18 Eos % (Auto) 0.7 % (0-6) 10/20/19 10:18 Baso % (Auto) 0.2 % (0-2) 10/20/19 10:18 Absolute Neuts (auto) 9.0 10^3/uL (1.7-8.2) H 10/20/19 10:18 Absolute Lymphs (auto) 2.2 10^3/uL (0.5-4.7) 10/20/19 10:18 Absolute Monos (auto) 0.7 10^3/uL (0.1-1.4) 10/20/19 10:18 Absolute Eos (auto) 0.1 10^3/uL (0.0-0.6) 10/20/19 10:18 Absolute Basos (auto) 0.0 10^3/uL (0.0-0.2) 10/20/19 10:18 Seg Neutrophils % 74.9 % (42-78) 10/20/19 10:18 Sodium 132.7 mmol/L (137-145) L 10/20/19 10:18 Potassium 4.1 mmol/L (3.6-5.0) 10/20/19 10:18 Chloride 108 mmol/L (98-107) H 10/20/19 10:18 Carbon Dioxide 19 mmol/L (22-30) L 10/20/19 10:18 Anion Gap 6 (5-19) 10/20/19 10:18 BUN 12 mg/dL (7-20) 10/20/19 10:18 Creatinine 0.63 mg/dL (0.52-1.25) 10/20/19 10:18 Est GFR ( Amer) > 60 (>60) 10/20/19 10:18 Est GFR (MDRD) Non-Af > 60 (>60) 10/20/19 10:18 Glucose 92 mg/dL (75-110) 10/20/19 10:18 POC Glucose 94 mg/dL (70-110) 10/20/19 18:11 Uric Acid 4.2 mg/dL (2.5-6.2) 10/20/19 10:18 Calcium 9.5 mg/dL (8.4-10.2) 10/20/19 10:18 Total Bilirubin 0.2 mg/dL (0.2-1.3) 10/20/19 10:18 Direct Bilirubin 0.0 mg/dL (0.0-0.4) 10/20/19 10:18 Neonat Total Bilirubin Not Reportable 10/20/19 10:18 Neonat Direct Bilirubin Not Reportable 10/20/19 10:18 Neonat Indirect Bili Not Reportable 10/20/19 10:18 AST 21 U/L (14-36) 10/20/19 10:18 ALT 24 U/L (<35) 10/20/19 10:18 Alkaline Phosphatase 121 U/L (38-126) 10/20/19 10:18 Lactate Dehydrogenase 140 U/L (120-246) 10/20/19 10:18 Total Protein 5.7 g/dL (6.3-8.2) L 10/20/19 10:18 Albumin 3.1 g/dL (3.5-5.0) L 10/20/19 10:18 Urine Color YELLOW 10/20/19 09:48 Urine Appearance SLIGHTLY-CLOUDY 10/20/19 09:48 Urine pH 5.0 (5.0-9.0) 10/20/19 09:48 Ur Specific [place] 1.021 10/20/19 09:48 Urine Protein 30 mg/dL (NEGATIVE) H 10/20/19 09:48 Urine Glucose (UA) NEGATIVE mg/dL (NEGATIVE) 10/20/19 09:48 Urine Ketones TRACE mg/dL (NEGATIVE) H 10/20/19 09:48 Urine Blood NEGATIVE (NEGATIVE) 10/20/19 09:48 Urine Nitrite NEGATIVE (NEGATIVE) 10/20/19 09:48 Urine Bilirubin NEGATIVE (NEGATIVE) 10/20/19 09:48 Urine Urobilinogen NEGATIVE mg/dL (<2.0) 10/20/19 09:48 Ur Leukocyte Esterase TRACE (NEGATIVE) H 10/20/19 09:48 Urine Creatinine 107.7 mg/dL (16-327) 10/20/19 09:48 Protein/Creatinin Ratio 0.2 mg/mg (0.0-0.2) 10/20/19 09:48 Urine Total Protein 17.9 mg/dL (<12) H 10/20/19 09:48 Urine Ascorbic Acid NEGATIVE (NEGATIVE) 10/20/19 09:48 Membranes Rupture POSITIVE (NEGATIVE) H 10/20/19 09:48 Urine Opiates Screen NEGATIVE 10/20/19 09:48 Urine Methadone Screen NEGATIVE 10/20/19 09:48 Ur Barbiturates Screen NEGATIVE 10/20/19 09:48 Ur Phencyclidine Scrn NEGATIVE 10/20/19 09:48 Ur Amphetamines Screen NEGATIVE 10/20/19 09:48 U Benzodiazepines Scrn NEGATIVE 10/20/19 09:48 Urine Cocaine Screen NEGATIVE 10/20/19 09:48 U Marijuana (THC) Screen NEGATIVE 10/20/19 09:48 Blood Type O POSITIVE 10/20/19 10:18 Antibody Screen NEGATIVE 10/20/19 10:18 Plan Plan of Treatment: d/c to home, f/up with [facility] in one week for incision check Time Spent: Less than 30 Minutes
[2019-10-22 10:33] VITALS: BP 124/76
[2019-10-22] MEDS: DOCUSATE SODIUM 100 MG CAPSULE PO SCH (10:34)
[2019-10-22] MEDS: PRENATAL VITAMIN W DHA CAPSULE PO SCH (10:34)
== END 2019-10-22 13:42 | disposition home or self-care (01) | DRG 785 ==
LOC: LC 09:32 → LR 09:51 → 2S 14:40
PROVIDERS: ADMIT Student in an Organized Health Care Education/Training Program; ATTEND Student in an Organized Health Care Education/Training Program
PROC: 10D00Z1 Extraction of Products of Conception, Low, Open Approach (ICD-10-PCS; principal; 2019-10-20)
PROC: 0UL70CZ Occlusion of Bilateral Fallopian Tubes with Extraluminal Device, Open Approach (ICD-10-PCS; 2019-10-20)
DX: O42.02 Full-term premature rupture of membranes, onset of labor within 24 hours of rupture (principal); O24.420 Gestational diabetes mellitus in childbirth, diet controlled; O34.211 Maternal care for low transverse scar from previous cesarean delivery; N85.8 Other specified noninflammatory disorders of uterus; Z3A.37 37 weeks gestation of pregnancy; Z37.0 Single live birth; Z30.2 Encounter for sterilization
CPT/HCPCS: 1961; 36415; 64450; 76942; 80053; 80307; 81005; 82570; 82962; 83615; 84112; 84156; 84550; 85025; 85027; 86850; 86900; 86901; 94799; 99140; J0131; J0690; J1170; J2250; J2270; J2370; J2405; J2550; J2590; J2795; J3490; J7120